=== PATIENT | female | born 1985 | race Caucasian/White ===

== ENCOUNTER 2016-10-29 22:53 | Emergency (ER) | payer SELFPAY ==
[~2016-10-29] VITALS: Ht 160 cm; Wt 63.5 kg
--- NOTE | ~2016-10-29 | CR72 ---
[facility] A Service of [facility] & [facility] RADIOLOGY TEXT RESULTS PATIENT: LALA SANDRA LOCATION: [facility] : 83 UNIT #: [id number] AGE: [address]: Viky Falcon APRN SEX: F ORDER DR: [id number] [facility] [address] [place], [place] [address] [id number] MR#: [id number] Acc #: [id number] NAME: LALA SANDRA. : 1985 SEX: F STUDY DATE/TIME: 10/30/2016 01:57 UNIT: [facility] ROOM: STUDY DESCRIPTION: CR Chest Single View Portable Attending Physician: Viky Falcon A.P.R.N. Ordering Physician: Viky Falcon A.P.R.N. Primary Care Physician: Shadi Kraus M.D. MEDICAL IMAGING REPORT This report is preliminary unless electronic signature is present EXAM Portable chest, 10/30 at 01:57. INDICATIONS Shortness of air and chest pain for 1 day. History of asthma. COMPARISON 04/06/2016 FINDINGS A single AP portable view of the chest shows both lungs to be clear. The heart is normal in size. The mediastinal contour is normal. No significant bone abnormalities are seen. IMPRESSION Normal portable chest. Dictated by... Ramirez Augustin Jr., M.D. THIS IS AN ELECTRONICALLY VERIFIED REPORT Ramirez Augustin Jr., M.D. at 10/30/2016 9:40 PM RAUL/ramon TD: 10/30/2016 09:51 JOB #: [id number] MEDICAL IMAGING REPORT Page 1 of 1 COPY
--- NOTE | ~2016-10-29 | EKG ---
PATIENT: LALA SANDRA UNIT #: [id number] Ventricular Rate: 75 BPM Atrial Rate: 75 BPM P-R Interval: 182 ms QRS Duration: 94 ms Q-T Interval: 410 ms QTC Calculation(Bezet): 457 ms P [place]: 61 degrees Calculated R [place]: 71 degrees Calculated T [place]: 51 degrees Diagnosis Line: Normal sinus rhythm Diagnosis Line: Normal ECG Diagnosis Line: No previous ECGs available Diagnosis Line: Confirmed by MARY MOLINA MD ([id number]) on Diagnosis Line: 10/30/2016 11:58:23 AM INTERPRETING MD: JESSE FRAGA
[~2016-10-29 22:53] MED LIST: ALPRAZOLAM PO; BENADRYL12.5 M1 PO; FAMOTIDINE PO; MEDROL DOSEPAK4 MG PO; ZOLOFT PO; ZYRTEC10 M2 PO
== END 2016-10-30 03:35 | disposition home or self-care (01) ==
LOC: CED 22:53
DX: J45.909 Unspecified asthma, uncomplicated (principal); F17.210 Nicotine dependence, cigarettes, uncomplicated; Z90.710 Acquired absence of both cervix and uterus; Z88.1 Allergy status to other antibiotic agents
CPT/HCPCS: 71010; 93005; 94640; 99285